=== PATIENT | female | born 1980 ===

== ENCOUNTER 2020-04-15 09:23 | Outpatient (CLI) | payer MEDICARE, MEDICAID, SELFPAY | END 2020-04-15 09:24 | disposition home or self-care (01) | PROVIDERS: PCP Family Medicine; Visit Provider Family Medicine | DX: H91.93 Unspecified hearing loss, bilateral (principal) | CPT/HCPCS: 92557; 92567 ==

== ENCOUNTER 2023-05-17 08:37 | Outpatient (CLI) | payer MEDICARE, MEDICAID, SELFPAY | END 2023-05-17 08:38 | disposition home or self-care (01) | LOC: ANHBWCAUD 08:38 | PROVIDERS: PCP Family Medicine; Visit Provider Family Medicine | DX: H91.93 Unspecified hearing loss, bilateral (principal) | CPT/HCPCS: 92557; 92567 ==